=== PATIENT | female | born 1950 | race Caucasian/White ===

== ENCOUNTER 2023-03-30 13:00 | Outpatient (RCR) | payer MEDICARE, SELFPAY ==
--- NOTE | 2023-03-02 15:22 | OT.OPOE ---
OT Outpatient Ortho Eval OT Outpatient Ortho Eval* Start: 03/02/23 14:04 Freq: Status: Active Protocol: Document 03/02/23 14:05 ESTELLE (Rec: 03/02/23 15:15 ESTELLE [id number]) E-signed By Adilene Pate, OTR/L, CLT OT OP Ortho Eval Details Complexity Complexity Low Insurance Information Insurance Information [employer] Outpatient History/Precautions Current Condition/Medical Diagnosis Referring Provider Dr. Giorgi Agosto Treatment Diagnosis Pain in R thumb & Muscle Weakness Date of Onset 11/05/22 Other Precautions Had f/u apt on 02/23/[address] Agosto: INJURY: closed, acute, oblique fracture at the dorsal base of the distal phalanx of the right thumb ( DOI: 11/05/2022). Pt. states the thumb still hurts and she is still limited in what she can do. Her symptoms are improving very slowly. 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 The pain is mild- moderate, intermittent and relieves with rest. She does still wear the thumb brace with any moderate hand based task-EX: driving, cleaning in the house, cooking, etc.. 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) Social History Employment Status Retired Hobbies Baking, playing with her grandchildren Ortho Subjective Subjective Subjective It's hard to do anything because I'm right handed Pain Assessment Pain Present Pain Present Pain Reported Location Right Description Burning,Tightness,Dull, Achy, Chronic,Tender,Stabbing, Shooting,With Movement, Heaviness Intensity 4 Hand Pinch/Tunnel Worker Strength Hand Right Tunnel Worker Strength Position 1 (lbs) 30 Tunnel Worker Strength Position 2 (lbs) 40 Lateral Pinch Strength (lbs) 8 Three Point Pinch (lbs) 5 Tip Pinch Strength (lbs) 8 Left Tunnel Worker Strength Position 1 (lbs) 47 Tunnel Worker Strength Position 2 (lbs) 46 Lateral Pinch Strength (lbs) 14 Three Point Pinch (lbs) 14 Tip Pinch Strength (lbs) 11 OT Problems Problems Problems Decreased Strength,Decreased Range of Motion,Decreased Dexterity,Pain,Decreased Coordination,Sensory Sensitivity,Lifting,Gripping, Pinching Problems Comments Right Thumb: Radial Nerve is hypersensitive Digits pink, warm, brisk cap refill Tenderness: severely tender dorsum of the IP joint Right thumb IP joint ROM 0-20 (left 0-45) Actively able to flex and extend the IP joint IMAGING: PA, Lateral, and Oblique views of the right thumb were obtained today from [facility], were ordered and reviewed by me today, were compared to images obtained on 12/29/2022 and show portions of the fracture that have united completely (the transverse component the base of the distal phalanx). However, the dorsal aspect/ dorsal fragment has yet to fully night. It actually is in a better position than the radiographs from 12/29/2022. Other Problems Writing,Opening Containers, Dressing,Computer,Fasteners Patient Potential Excellent Assessment Assessment Assessment 72 year old female presents to the clinic today for the R ( dominant UE) thumb s/p closed, acute, oblique fracture at the dorsal base of the distal phalanx of the right thumb ( DOI: 11/05/2022). Patient had f/ u apt on 02/23/[address] Agosto with repeat x-rays which were reviewed by therapist. Pt. states the thumb still hurts and she is still limited in what she can do. Her symptoms are improving very slowly. 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 The pain is mild- moderate, intermittent and relieves with rest. She does still wear the thumb brace with any moderate hand-based task-EX: driving, cleaning in the house, cooking, etc.. At time of EVAL therapist instructed patient on nerve desensitization activities, provided her with a HEP that involved AROM and also progression of strengthening and issued patient a size MEDIUM tipless compression glove for the R hand. Patient is an excellent therapy candidate and will be seen 1x/ every other week for check ins . Occupational Therapy Treatment Plan - OP Potential Rehabilitation Potential Excellent Barriers Barriers to goal attainment None Set Goals Goals Set with Patient Yes Goals Goals 1. Patient will wean from wearing the R hand/wrist brace from 8+ hours during the daytime hours to less than 4 hours 2. Patient will increase R ( dominant) hand secondary school teacher strength from 30 lbs to >40 lbs in order to return to everyday tasks w/o fear of dropping items 3. Patient will increase R hand lateral pinch from 8lbs to >11 pounds in order to resume daily hand function with her dominant UE. 4. Patient will report an improvement in radial nerve ( hypersensitivity) (at time of EVAL: I think about this >10 times a day) Target Date 8 weeks Treatment Plan Treatment Plan Evaluation,Edema Control, Manual Therapy,Ultrasound, Therapeutic Exercise,Self Care /Home Management,Education Expected Frequency 1-2x Week Expected Duration 8-10 Weeks Home Program Home Program Home Program Initiated Home Program Specifics AROM of the Thumb Radial Nerve desensitization program Yellow Theraputty handout for R Thumb and Yellow Powerweb for R thumb Certification Certification I Certify That: Therapy Services Provided, Therapy Plan Established, Therapy Plan Reviewed Recertification Information Recertification Information Initial Certification Date 03/02/23 Recertification Due Date 05/31/23 Provider Signature Shows Agreement With POC & Medical Necessity Physician Comment/Change Comment or Changes Physician NPI Number #
== END 2023-03-30 17:11 | disposition home or self-care (01) ==
PROVIDERS: Visit Provider Orthopaedic Surgery Sports Medicine
DX: S62.509A Fracture of unspecified phalanx of unspecified thumb, initial encounter for closed fracture (principal); Z51.89 Encounter for other specified aftercare
CPT/HCPCS: 97110; 97165; X5282